=== PATIENT | male | born 1960 | race Caucasian/White ===

== ENCOUNTER → 2023-04-20 07:02 | Outpatient (REF) | payer OTHER, SELFPAY | LOC: HWRAD 07:02 | PROVIDERS: ATTENDING PHYSICIAN Internal Medicine Cardiovascular Disease; FAMILY PHYSICIAN Internal Medicine | DX: I71.8 Aortic aneurysm of unspecified site, ruptured (principal) | CPT/HCPCS: 71250 ==

== ENCOUNTER → 2023-05-14 18:25 | Outpatient (REF) | payer OTHER, SELFPAY | LOC: PAVMRI 18:25 | PROVIDERS: ATTENDING PHYSICIAN Physician Assistant Surgical; FAMILY PHYSICIAN Internal Medicine | DX: M25.511 Pain in right shoulder (principal) | CPT/HCPCS: 73221 ==

== ENCOUNTER → 2024-01-18 06:52 | Outpatient (REF) | payer OTHER, SELFPAY | LOC: HWRAD 06:52 | PROVIDERS: ATTENDING PHYSICIAN Physician Assistant Medical; FAMILY PHYSICIAN Internal Medicine | DX: M25.561 Pain in right knee (principal); M25.562 Pain in left knee | CPT/HCPCS: 73560; 73565 ==

== ENCOUNTER → 2024-04-07 07:36 | Outpatient (REF) | payer OTHER, SELFPAY | LOC: HWRAD 07:36 | PROVIDERS: ATTENDING PHYSICIAN Student in an Organized Health Care Education/Training Program; FAMILY PHYSICIAN Internal Medicine | DX: M25.571 Pain in right ankle and joints of right foot (principal) | CPT/HCPCS: 73700 ==

== ENCOUNTER → 2024-04-28 07:02 | Outpatient (REF) | payer OTHER, SELFPAY | LOC: HWRCS 07:02 | PROVIDERS: ATTENDING PHYSICIAN Internal Medicine Cardiovascular Disease; FAMILY PHYSICIAN Internal Medicine | DX: I35.1 Nonrheumatic aortic (valve) insufficiency (principal); I71.21 Aneurysm of the ascending aorta, without rupture; I27.20 Pulmonary hypertension, unspecified | CPT/HCPCS: 93306 ==

== ENCOUNTER → 2024-05-19 08:19 | Outpatient (REF) | payer OTHER, SELFPAY | LOC: HWRAD 08:19 | PROVIDERS: ATTENDING PHYSICIAN Student in an Organized Health Care Education/Training Program; FAMILY PHYSICIAN Internal Medicine | DX: M25.571 Pain in right ankle and joints of right foot (principal) | CPT/HCPCS: 73700 ==

== ENCOUNTER 2024-06-27 06:14 | Day surgery (SDC) | payer OTHER, SELFPAY ==
[2024-06-27] VITALS (9 sets, daily range): BP systolic 77–152; BP diastolic 53–82; BMI 34.5
[2024-06-27] MEDS: TYLENOL 1000 MG PO (12:37)
[2024-06-27] MEDS: CELEBREX 200 MG PO (12:37)
[2024-06-27] MEDS: NORMOSOL-R/PLASMALYTE-A 1000 IV (12:49)
== END 2024-06-27 20:50 | disposition home or self-care (01) ==
LOC: SDS 06:14
PROVIDERS: ATTENDING PHYSICIAN Student in an Organized Health Care Education/Training Program; FAMILY PHYSICIAN Internal Medicine
DX: M19.071 Primary osteoarthritis, right ankle and foot (principal); M25.571 Pain in right ankle and joints of right foot
CPT/HCPCS: 27702; 27745; C1776; 73610; 76000

== ENCOUNTER 2024-12-06 06:20 | Day surgery (SDC) | payer OTHER, SELFPAY | END 2024-12-06 09:35 | disposition home or self-care (01) | LOC: GI 06:20 | PROVIDERS: ATTENDING PHYSICIAN Internal Medicine Gastroenterology; FAMILY PHYSICIAN Internal Medicine | DX: Z12.11 Encounter for screening for malignant neoplasm of colon (principal); D12.2 Benign neoplasm of ascending colon; D12.4 Benign neoplasm of descending colon; D12.5 Benign neoplasm of sigmoid colon; K57.30 Diverticulosis of large intestine without perforation or abscess without bleeding; K62.1 Rectal polyp; Z86.0101 Personal history of adenomatous and serrated colon polyps; Z83.719 Family history of colon polyps, unspecified | CPT/HCPCS: 45385; 88305 ==

== ENCOUNTER 2025-01-18 05:57 | Day surgery (SDC) | payer OTHER, SELFPAY ==
[2025-01-18 06:22] VITALS: BMI 33.1
[2025-01-18 06:23] VITALS: BMI 33.1
[2025-01-18 06:26] VITALS: BP 117/74
[2025-01-18] MEDS: CELEBREX 200 MG PO (06:39)
[2025-01-18] MEDS: TYLENOL 1000 MG PO (06:40)
[2025-01-18] MEDS: NORMOSOL-R/PLASMALYTE-A 1000 IV (06:41)
--- NOTE | 2025-01-18 06:52 | SUR.OPER ---
Patient rates high for DVT risk. Surgeon aware and no further orders for DVT prophylaxis.
[2025-01-18 07:47] VITALS: BP 104/75
[2025-01-18 08:00] VITALS: BP 110/74
[2025-01-18 08:15] VITALS: BP 109/73
[2025-01-18 08:30] VITALS: BP 115/74
== END 2025-01-18 08:55 | disposition home or self-care (01) ==
LOC: SDS 05:57
PROVIDERS: ATTENDING PHYSICIAN Student in an Organized Health Care Education/Training Program
DX: D22.72 Melanocytic nevi of left lower limb, including hip (principal)
CPT/HCPCS: 28041; 88307; 88341; 88342

== ENCOUNTER → 2025-02-20 08:35 | Outpatient (REF) | payer OTHER, SELFPAY | LOC: MRI 3T 08:35 | PROVIDERS: ATTENDING PHYSICIAN Urology; FAMILY PHYSICIAN Internal Medicine | DX: R97.20 Elevated prostate specific antigen [PSA] (principal) | CPT/HCPCS: 72197; A9575 ==